=== PATIENT | female | born 1935 | race Asian ===

== ENCOUNTER → 2016-06-14 | Outpatient (CLI) | payer MEDICARE | END | disposition home or self-care (01) | LOC: CFH 16:51 | PROVIDERS: ATTEND Internal Medicine | DX: M51.36 Other intervertebral disc degeneration, lumbar region (principal); M43.8X6 Other specified deforming dorsopathies, lumbar region; G95.29 Other cord compression; M25.552 Pain in left hip; M26.9 Dentofacial anomaly, unspecified | CPT/HCPCS: 72100 ==